=== PATIENT | female | born 1970 | race Asian ===

== ENCOUNTER 2019-06-22 16:22 | Emergency (ER) | payer BC ==
[~2019-06-22] VITALS: Ht 160 cm; Wt 68.5 kg
[2019-06-22 16:42] VITALS: Ht 160 cm; Wt 68.5 kg
[2019-06-22 19:01] VITALS: BP 121/71
== END 2019-06-22 19:01 | disposition home or self-care (01) ==
LOC: ED 16:22
DX: S00.83XA Contusion of other part of head, initial encounter (principal); W01.0XXA Fall on same level from slipping, tripping and stumbling without subsequent striking against object, initial encounter; Y93.89 Activity, other specified; Y92.89 Other specified places as the place of occurrence of the external cause; Y99.8 Other external cause status

== ENCOUNTER 2020-03-12 20:34 | Emergency (ER) | payer BC ==
[~2020-03-12] VITALS: Ht 160 cm; Wt 70.3 kg
[2020-03-12 20:42] VITALS: BP 114/69; Ht 160 cm; Wt 70.3 kg
== END 2020-03-12 23:47 | disposition home or self-care (01) ==
LOC: ED 20:34
DX: F45.8 Other somatoform disorders (principal); Z87.19 Personal history of other diseases of the digestive system